=== PATIENT | male | born 1970 | race African-American/Black ===

== ENCOUNTER 2017-04-14 15:47 | Emergency (ER) | payer SELFPAY ==
[~2017-04-14] VITALS: Ht 157.5 cm; Wt 67.5 kg
[~2017-04-14 15:47] MED LIST: BACTRIM DS 8001 TAB PO; CANA300T PO; CEPHALEXIN250 M1 PO; CEPHALEXIN500 M1 PO; CLEOCIN HC150 MG/CAP PO; DOXYCYCLINE 10100 MG PO; FLEXERIL 1010 MG/TAB PO; FLOVENT 110MCG7.9 GM IH; GLIPIZIDE10 MG PO; GLUCOPHAGE500 MG/TAB PO; GLUCOTROL10 MG PO; HIGH BP MED; LEVAQUIN 5500 MG/TAB PO; LEVAQUIN 750MG750 M1 PO; LEVEMIR FLEXPEN SC; NAPROSYN500 MG PO; NO HOME MEDICATIONS; NORCO 325 MG-51 TAB PO; NORCO 325 MG-7.1 TAB PO; PEN-VEE K500 MG PO; PERCOCET 325 MG1 TA2 PO; PREDNISONE20 MG PO; PRINIVIL20 MG PO; PROVENTIL0.09 MG/A1 IH; SEPTRA DS 8001 TAB PO; VENTOLIN0.09 MG IH; VICODIN 5/5001 UDTAB PO; ZITHROMAX 250M250 MG PO; ZITHROMAX Z PA250 MG PO
[2017-04-14 15:53] VITALS: TEMP 99.3
[2017-04-14 17:01] LABS: BASO % 0.6 % (0.0-2.0); EOS % 0.8 % (0-4.0); GRAN # 3.1 (1.4-6.5); GRAN % 59.6 % (42.2-75.2); HEMATOCRIT 42.2 % (42.0-52.0); HEMOGLOBIN 13.8 g/dl (13.5-18.0); LYMPH # 1.5 (1.2-3.4); LYMPH % 28.4 % (20.0-51.0); MEAN CELL VOLUME 89 fl (80.0-100.0); MEAN CORPUSCULAR HEMOGLOBIN 29 pg (27.0-31.0); MEAN CORPUSCULAR HGB CONC 33 g/dl (33.0-37.0); MEAN PLATELET VOLUME 9.7 fl (7.4-10.4); MONO # 0.5 (0.1-0.6); MONO % 10.4 % (1.7-9.3); PLATELET COUNT 243 K/mm3 (130-400); RED BLOOD COUNT 4.76 M/mm3 (4.20-5.60); REDCELL DISTRIBUTION WIDTH-CV 13.1 % (11.5-14.5)
[2017-04-14 17:06] LABS: ALBUMIN 4.2 gm/dL (3.5-5.0); BILIRUBIN,TOTAL 0.8 mg/dL (0.0-1.0); C-REACTIVE PROTEIN 4.3 mg/dL (0.0-0.9); CALCIUM 9.5 mg/dL (8.4-10.2); CREATININE, serum 1.03 mg/dL (0.66-1.25); POTASSIUM 3.4 mmol/L (3.4-5.0); TOTAL PROTEIN 7.9 gm/dL (6.4-8.2)
[2017-04-14] MEDS ORDERED: MUCINEX FAST-M180 M2 (17:07)
[2017-04-14 17:43] LABS: INFLUENZA A NEGATIVE; INFLUENZA B NEGATIVE
[2017-04-14] MEDS ORDERED: ZITHROMAX 250M250 MG PO (18:14)
[2017-04-14] MEDS ORDERED: PREDNISONE20 MG PO (18:14)
[2017-04-14] MEDS ORDERED: NORCO 325 MG-51 TAB PO (18:14)
[2017-04-14 18:31] VITALS: BP 130/83; PULSE 95
== END 2017-04-14 19:12 | disposition home or self-care (01) ==
LOC: COL.ER 15:47
PROVIDERS: Emergency Medicine
DX: J45.909 Unspecified asthma, uncomplicated (principal); E11.9 Type 2 diabetes mellitus without complications; Z79.84 Long term (current) use of oral hypoglycemic drugs
CPT/HCPCS: J2405; J7030; J7512

== ENCOUNTER 2017-05-07 16:05 | Emergency (ER) | payer SELFPAY ==
[~2017-05-07] VITALS: Ht 157.5 cm; Wt 71.4 kg
[~2017-05-07 16:05] MED LIST changes: +MUCINEX FAST-M180 M2
[2017-05-07 16:09] VITALS: BP 108/57; TEMP 98.1
[2017-05-07 17:08] LABS: INFLUENZA A NEGATIVE; INFLUENZA B NEGATIVE
[2017-05-07] MEDS ORDERED: ZITHROMAX 250M250 MG PO (18:43)
[2017-05-07] MEDS ORDERED: PREDNISONE20 MG PO (18:43)
[2017-05-07 19:26] VITALS: PULSE 96
== END 2017-05-07 19:30 | disposition home or self-care (01) ==
LOC: COL.ER 16:05
PROVIDERS: Emergency Medicine
DX: J44.9 Chronic obstructive pulmonary disease, unspecified (principal); E11.9 Type 2 diabetes mellitus without complications; I10 Essential (primary) hypertension; F17.210 Nicotine dependence, cigarettes, uncomplicated
CPT/HCPCS: J7512

== ENCOUNTER 2017-06-29 12:08 | Emergency (ER) | payer SELFPAY ==
[~2017-06-29] VITALS: Ht 157.5 cm; Wt 66.8 kg
[~2017-06-29 12:08] MED LIST changes: -LEVEMIR100 U/ML SQ; -PROAIR HFA0.09 MG/AC IH
[2017-06-29 12:13] VITALS: TEMP 98.9
[2017-06-29] MEDS ORDERED: PROVENTIL0.09 MG/A1 IH (12:16)
[2017-06-29] MEDS ORDERED: LEVEMIR100 U/ML SQ (12:17)
[2017-06-29] MEDS ORDERED: PROAIR HFA0.09 MG/AC IH (12:50)
[2017-06-29] MEDS ORDERED: PREDNISONE20 MG PO (12:50)
[2017-06-29] MEDS ORDERED: ZITHROMAX Z PA250 MG PO (12:50)
[2017-06-29 13:33] VITALS: BP 133/86; PULSE 80
== END 2017-06-29 13:33 | disposition home or self-care (01) ==
LOC: COL.ER 12:08
DX: J45.909 Unspecified asthma, uncomplicated (principal); E11.9 Type 2 diabetes mellitus without complications; Z86.14 Personal history of Methicillin resistant Staphylococcus aureus infection; Z98.890 Other specified postprocedural states; Z79.4 Long term (current) use of insulin
CPT/HCPCS: J7512

== ENCOUNTER → 2017-06-29 | Outpatient (CLI) | payer SELFPAY ==
[~2017-06-29] MED LIST changes: +LEVEMIR100 U/ML SQ; +PROAIR HFA0.09 MG/AC IH
[2017-06-29 14:25] LABS: HEMATOCRIT 42.9 % (42.0-52.0); HEMOGLOBIN 13.7 g/dl (13.5-18.0)
[2017-06-29 14:55] LABS: ALBUMIN 4.3 gm/dL (3.5-5.0); BILIRUBIN,TOTAL 0.5 mg/dL (0.0-1.0); CALCIUM 9.3 mg/dL (8.4-10.2); CHOLESTEROL RISK RATIO 4.8; CREATININE, serum 1.45 mg/dL (0.66-1.25); POTASSIUM 3.9 mmol/L (3.4-5.0); TOTAL PROTEIN 7.8 gm/dL (6.4-8.2)
[2017-06-29 15:25] LABS: THYROID STIMULATING HORMONE 1.76 uIU/mL (0.465-4.680)
== END ==
LOC: COL.LAB 13:57
DX: E11.9 Type 2 diabetes mellitus without complications (principal)

== ENCOUNTER 2017-08-13 11:12 | Emergency (ER) | payer SELFPAY ==
[~2017-08-13] VITALS: Ht 157.5 cm; Wt 71.4 kg
[~2017-08-13 11:12] MED LIST changes: +LEVEMIR100 U/ML SQ; +PROAIR HFA0.09 MG/AC IH
[2017-08-13 11:15] VITALS: BP 121/71; TEMP 98.6
[2017-08-13] MEDS ORDERED: ALBUTEROL0.83 MG/ML IH (12:06)
[2017-08-13] MEDS ORDERED: PROAIR HFA0.09 MG/AC IH (12:06)
[2017-08-13] MEDS ORDERED: PREDNISONE20 MG PO (12:06)
[2017-08-13 12:14] VITALS: PULSE 80
== END 2017-08-13 12:15 | disposition home or self-care (01) ==
LOC: COL.ER 11:12
DX: J45.909 Unspecified asthma, uncomplicated (principal); J06.9 Acute upper respiratory infection, unspecified; E11.9 Type 2 diabetes mellitus without complications; Z98.890 Other specified postprocedural states; Z79.4 Long term (current) use of insulin

== ENCOUNTER → 2017-10-26 | Outpatient (CLI) | payer SELFPAY ==
[~2017-10-26] MED LIST changes: +ALBUTEROL0.83 MG/ML IH
== END ==
LOC: SUN.DIA 09:47
DX: E11.9 Type 2 diabetes mellitus without complications (principal); Z79.4 Long term (current) use of insulin; E78.5 Hyperlipidemia, unspecified; I10 Essential (primary) hypertension; Z68.27 Body mass index [BMI] 27.0-27.9, adult; Z71.3 Dietary counseling and surveillance; Z87.891 Personal history of nicotine dependence
CPT/HCPCS: G0108

== ENCOUNTER 2017-12-28 11:30 | Emergency (ER) | payer SELFPAY ==
[~2017-12-28] VITALS: Ht 157.5 cm; Wt 71.4 kg
[2017-12-28 11:37] VITALS: TEMP 101.4
[2017-12-28] MEDS ORDERED: PRINIVIL10 MG PO (11:41)
[2017-12-28 11:59] LABS: BASO % 0.6 % (0.0-2.0); EOS # 0.3 (0.0-0.7); EOS % 4.7 % (0-4.0); GRAN # 3.7 (1.4-6.5); GRAN % 68.4 % (42.2-75.2); HEMATOCRIT 39.2 % (42.0-52.0); LYMPH # 0.9 (1.2-3.4); MEAN CELL VOLUME 90 fl (80.0-100.0); MEAN CORPUSCULAR HEMOGLOBIN 30 pg (27.0-31.0); MEAN CORPUSCULAR HGB CONC 33 g/dl (33.0-37.0); MEAN PLATELET VOLUME 9.5 fl (7.4-10.4); MONO # 0.5 (0.1-0.6); MONO % 9.1 % (1.7-9.3); PLATELET COUNT 217 K/mm3 (130-400); RED BLOOD COUNT 4.35 M/mm3 (4.20-5.60); REDCELL DISTRIBUTION WIDTH-CV 12.6 % (11.5-14.5)
[2017-12-28 12:15] LABS: ALANINE AMINOTRANSFERASE 33 U/L (21-72); ALBUMIN 3.8 gm/dL (3.5-5.0); ALKALINE PHOSPHATASE 81 U/L (50-136); ANION GAP 12 mmol/L (7-16); AST,SGOT 25 U/L (15-37); BILIRUBIN,TOTAL 0.3 mg/dL (0.0-1.0); BLOOD UREA NITROGEN 15 mg/dL (9-20); CALCIUM 8.4 mg/dL (8.4-10.2); CARBON DIOXIDE 24 mmol/L (22-30); CHLORIDE 101 mmol/L (98-107); CREATININE, serum 1.13 mg/dL (0.66-1.25); GLUCOSE 135 mg/dL (74-106); POTASSIUM 3.7 mmol/L (3.4-5.0); SODIUM 136 mmol/L (137-145)
[2017-12-28 12:26] LABS: TROPONIN-I < 0.012 ng/mL (0.000-0.034)
[2017-12-28] MEDS ORDERED: ZITHROMAX TRI-500 MG PO (13:41)
[2017-12-28] MEDS ORDERED: PREDNISONE20 MG PO (13:41)
[2017-12-28 15:01] VITALS: BP 152/94; PULSE 101
== END 2017-12-28 15:01 | disposition home or self-care (01) ==
LOC: COL.ER 11:30
PROVIDERS: Nurse Practitioner
DX: J45.901 Unspecified asthma with (acute) exacerbation (principal); I10 Essential (primary) hypertension; E11.9 Type 2 diabetes mellitus without complications; Z98.890 Other specified postprocedural states; Z79.4 Long term (current) use of insulin; Z87.891 Personal history of nicotine dependence
CPT/HCPCS: J0696; J2930; J7030

== ENCOUNTER 2018-01-02 10:02 | Observation (INO) | payer SELFPAY ==
[~2018-01-02] VITALS: Ht 157.5 cm; Wt 66.3 kg
[~2018-01-02 10:02] MED LIST changes: +PRINIVIL10 MG PO; +ZITHROMAX TRI-500 MG PO
[2018-01-02 10:42] LABS: HEMATOCRIT 43.2 % (42.0-52.0); HEMOGLOBIN 14.8 g/dl (13.5-18.0); MEAN CELL VOLUME 86 fl (80.0-100.0); MEAN CORPUSCULAR HEMOGLOBIN 30 pg (27.0-31.0); MEAN CORPUSCULAR HGB CONC 34 g/dl (33.0-37.0); MEAN PLATELET VOLUME 9.8 fl (7.4-10.4); PLATELET COUNT 210 K/mm3 (130-400); RED BLOOD COUNT 5.01 M/mm3 (4.20-5.60); REDCELL DISTRIBUTION WIDTH-CV 12.4 % (11.5-14.5)
[2018-01-02 10:47] LABS: ALBUMIN 3.7 gm/dL (3.5-5.0); BILIRUBIN,TOTAL 0.4 mg/dL (0.0-1.0); CALCIUM 8.8 mg/dL (8.4-10.2); CREATININE, serum 0.97 mg/dL (0.66-1.25); POTASSIUM 3.4 mmol/L (3.4-5.0); TOTAL PROTEIN 7.4 gm/dL (6.4-8.2)
[2018-01-02 11:03] LABS: BAND 7 % (0-10); LYMPHOCYTE 15 % (20.0-51.0); NEUTROPHILS 74 % (42.0-75.2); PLATELET ESTIMATE NORMAL (NORMAL)
[2018-01-02 13:39] VITALS: BP 138/70; PULSE 103; TEMP 98
[2018-01-02 15:58] VITALS: BP 132/68; PULSE 91; TEMP 98.4
[2018-01-02] MEDS ORDERED: PRAVACHOL 20MG20 MG PO (16:13)
[2018-01-02 19:32] VITALS: BP 134/70; PULSE 87; TEMP 98.4
[2018-01-03] VITALS (7 sets, daily range): BP systolic 111–163; BP diastolic 73–87; PULSE 77–113; TEMP 97.9–99.6
[2018-01-03 06:37] LABS: MEAN CELL VOLUME 86 fl (80.0-100.0); MEAN CORPUSCULAR HEMOGLOBIN 29 pg (27.0-31.0); MEAN CORPUSCULAR HGB CONC 34 g/dl (33.0-37.0); MEAN PLATELET VOLUME 9.4 fl (7.4-10.4); PLATELET COUNT 214 K/mm3 (130-400); RED BLOOD COUNT 4.29 M/mm3 (4.20-5.60); REDCELL DISTRIBUTION WIDTH-CV 12.6 % (11.5-14.5)
[2018-01-03 06:45] LABS: CALCIUM 8.4 mg/dL (8.4-10.2); CREATININE, serum 0.9 mg/dL (0.66-1.25); HEMOGLOBIN 12.5 g/dl (13.5-18.0); POTASSIUM 3.5 mmol/L (3.4-5.0)
[2018-01-03 07:06] LABS: BAND 7 % (0-10); LYMPHOCYTE 35 % (20.0-51.0); NEUTROPHILS 50 % (42.0-75.2); PLATELET ESTIMATE NORMAL (NORMAL)
[2018-01-04 04:24] VITALS: BP 175/91; PULSE 87; TEMP 98.8
[2018-01-04 06:55] VITALS: BP 141/77; PULSE 105; TEMP 98.1
[2018-01-04 06:58] LABS: HEMATOCRIT 37.2 % (42.0-52.0); HEMOGLOBIN 12.3 g/dl (13.5-18.0); MEAN CELL VOLUME 89 fl (80.0-100.0); MEAN CORPUSCULAR HEMOGLOBIN 29 pg (27.0-31.0); MEAN CORPUSCULAR HGB CONC 33 g/dl (33.0-37.0); MEAN PLATELET VOLUME 9.5 fl (7.4-10.4); PLATELET COUNT 246 K/mm3 (130-400); REDCELL DISTRIBUTION WIDTH-CV 12.7 % (11.5-14.5)
[2018-01-04 07:07] LABS: CALCIUM 7.9 mg/dL (8.4-10.2); CREATININE, serum 0.85 mg/dL (0.66-1.25)
[2018-01-04 07:18] LABS: POTASSIUM 2.8 mmol/L (3.4-5.0)
[2018-01-04 07:43] LABS: EOSINOPHIL 1 % (0-4); LYMPHOCYTE 30 % (20.0-51.0); NEUTROPHILS 61 % (42.0-75.2)
[2018-01-04 07:44] LABS: PLATELET ESTIMATE NORMAL (NORMAL)
[2018-01-04] MEDS ORDERED: LEVAQUIN 750MG750 M1 PO (09:15)
[2018-01-04] MEDS ORDERED: ROBITUSSIN A-C S1 M1 PO (09:19)
[2018-01-04 10:55] VITALS: BP 154/85; PULSE 80; TEMP 98.9
== END 2018-01-04 15:14 | disposition home or self-care (01) ==
LOC: COL.ER 10:02 → MEDICAL 12:09
PROVIDERS: Family Medicine; Hospitalist; Nurse Practitioner Family
DX: J18.8 Other pneumonia, unspecified organism (principal); I10 Essential (primary) hypertension; E87.6 Hypokalemia; E11.9 Type 2 diabetes mellitus without complications; Z79.4 Long term (current) use of insulin; J45.909 Unspecified asthma, uncomplicated
CPT/HCPCS: G0378; G0379; J0696; J1650; J1815; J1956; J2930; J7030

== ENCOUNTER 2018-03-15 12:48 | Emergency (ER) | payer SELFPAY ==
[~2018-03-15] VITALS: Ht 157.5 cm; Wt 74.6 kg
[~2018-03-15 12:48] MED LIST changes: +PRAVACHOL 20MG20 MG PO; +ROBITUSSIN A-C S1 M1 PO
[2018-03-15 12:55] VITALS: TEMP 98.4
[2018-03-15 14:06] LABS: COLLECTION METHOD CLEAN CATCH
[2018-03-15 14:21] LABS: MUCOUS Present /lpf; PH 5 (5-8); SQUAMOUS EPITHELIAL 0-2 /hpf; URINE APPEARANCE Cloudy; URINE BACTERIA Rare /hpf; URINE BILIRUBIN Negative (NEGATIVE); URINE BLOOD Negative (NEGATIVE); URINE COLOR Amber; URINE GLUCOSE 1+ (NEGATIVE); URINE KETONE Trace (NEGATIVE); URINE LEUKOCYTE ESTERASE Negative (NEGATIVE); URINE NITRATE Negative (NEGATIVE); URINE PROTEIN(semi-quant) 3+ (NEGATIVE); URINE UROBILINOGEN >=4.0 mg/dL (NEGATIVE)
[2018-03-15 15:54] LABS: BASO % 0.3 % (0.0-2.0); EOS # 0.4 (0.0-0.7); EOS % 5.4 % (0-4.0); GRAN # 3.8 (1.4-6.5); GRAN % 53.9 % (42.2-75.2); HEMOGLOBIN 11.2 g/dl (13.5-18.0); LYMPH # 2.2 (1.2-3.4); LYMPH % 31.3 % (20.0-51.0); MEAN CELL VOLUME 89 fl (80.0-100.0); MEAN CORPUSCULAR HEMOGLOBIN 30 pg (27.0-31.0); MEAN CORPUSCULAR HGB CONC 34 g/dl (33.0-37.0); MEAN PLATELET VOLUME 10.1 fl (7.4-10.4); MONO # 0.6 (0.1-0.6); MONO % 8.7 % (1.7-9.3); PLATELET COUNT 261 K/mm3 (130-400); RED BLOOD COUNT 3.71 M/mm3 (4.20-5.60); REDCELL DISTRIBUTION WIDTH-CV 12.9 % (11.5-14.5)
[2018-03-15 15:58] LABS: HEMATOCRIT 33.1 % (42.0-52.0)
[2018-03-15 16:08] LABS: ALBUMIN 3.8 gm/dL (3.5-5.0); BILIRUBIN,TOTAL 0.4 mg/dL (0.0-1.0); CREATININE, serum 1.17 mg/dL (0.66-1.25); POTASSIUM 3.9 mmol/L (3.4-5.0); TOTAL PROTEIN 7.6 gm/dL (6.4-8.2)
[2018-03-15] MEDS ORDERED: AMOXICILLIN 8751 TAB PO (16:29)
[2018-03-15 17:15] VITALS: BP 140/2; PULSE 70
== END 2018-03-15 17:16 | disposition home or self-care (01) ==
LOC: COL.ER 12:48
PROVIDERS: Emergency Medicine; Family Medicine
DX: J18.1 Lobar pneumonia, unspecified organism (principal); I10 Essential (primary) hypertension; E11.9 Type 2 diabetes mellitus without complications; E86.0 Dehydration; Z79.84 Long term (current) use of oral hypoglycemic drugs
CPT/HCPCS: J0696; J7030; Q9967

== ENCOUNTER → 2018-05-06 | Outpatient (CLI) | payer SELFPAY ==
[~2018-05-06] MED LIST changes: +AMOXICILLIN 8751 TAB PO
== END ==
LOC: COL.RAD 12:23
DX: J18.9 Pneumonia, unspecified organism (principal)

== ENCOUNTER → 2018-05-25 | Outpatient (CLI) | payer SELFPAY ==
[2018-05-25 11:53] LABS: HEMATOCRIT 38.3 % (42.0-52.0); HEMOGLOBIN 12.8 g/dl (13.5-18.0)
[2018-05-25 12:09] LABS: ALBUMIN 3.7 gm/dL (3.5-5.0); BILIRUBIN,TOTAL 0.7 mg/dL (0.0-1.0); CALCIUM 9.1 mg/dL (8.4-10.2); CHOLESTEROL RISK RATIO 5.3; CREATININE, serum 0.95 mg/dL (0.66-1.25); POTASSIUM 4.2 mmol/L (3.4-5.0); TOTAL PROTEIN 7.3 gm/dL (6.4-8.2)
== END ==
LOC: COL.LAB 11:12
PROVIDERS: Internal Medicine
DX: E11.9 Type 2 diabetes mellitus without complications (principal); J45.909 Unspecified asthma, uncomplicated

== ENCOUNTER → 2018-08-09 | Outpatient (CLI) | payer SELFPAY | LOC: SUN.DIA | DX: E11.9 Type 2 diabetes mellitus without complications (principal); Z79.4 Long term (current) use of insulin; E78.5 Hyperlipidemia, unspecified; I10 Essential (primary) hypertension | CPT/HCPCS: G0108 ==

== ENCOUNTER → 2018-08-09 | Outpatient (CLI) | payer SELFPAY ==
[2018-08-09 11:24] LABS: ALBUMIN 3.5 gm/dL (3.5-5.0); TOTAL PROTEIN 7.1 gm/dL (6.4-8.2)
[2018-08-09 11:42] LABS: BILIRUBIN UNCONJUGATED 0.2 mg/dL (0.0-1.1); BILIRUBIN,DIRECT 0.2 mg/dL (0.0-0.4); BILIRUBIN,TOTAL 0.4 mg/dL (0.0-1.0)
[2018-08-09 22:42] LABS: HEPATITIS B SURFACE ANTIBODY 175.4 (()); HEPATITIS B SURFACE ANTIGEN Negative (Negative)
[2018-08-10 05:34] LABS: HEPATITIS A ANTIBODY-IGM Negative (Negative); HEPATITIS C VIRUS ANTIBODY Reactive (Negative)
== END ==
LOC: COL.LAB 10:33
PROVIDERS: Internal Medicine
DX: R94.5 Abnormal results of liver function studies (principal)

== ENCOUNTER → 2018-08-11 | Outpatient (CLI) | payer SELFPAY | LOC: COL.RAD 10:21 | DX: K76.9 Liver disease, unspecified (principal); N28.89 Other specified disorders of kidney and ureter ==

== ENCOUNTER → 2018-08-27 | Outpatient (CLI) | payer SELFPAY ==
[2018-08-27 14:16] LABS: CREATININE, serum 0.77 (0.66-1.25)
== END ==
LOC: COL.RAD 12:43 → COL.LAB 12:43 → COL.RAD 13:00
PROVIDERS: Internal Medicine
DX: E11.9 Type 2 diabetes mellitus without complications (principal); N28.89 Other specified disorders of kidney and ureter; D18.03 Hemangioma of intra-abdominal structures; R76.8 Other specified abnormal immunological findings in serum
CPT/HCPCS: Q9967

== ENCOUNTER → 2018-11-08 | Outpatient (CLI) | payer SELFPAY | LOC: DIA.ED 13:14 | DX: E11.9 Type 2 diabetes mellitus without complications (principal); E78.5 Hyperlipidemia, unspecified; I10 Essential (primary) hypertension; Z79.4 Long term (current) use of insulin | CPT/HCPCS: G0108 ==

== ENCOUNTER 2018-11-19 11:17 | Emergency (ER) | payer SELFPAY ==
[~2018-11-19] VITALS: Ht 160 cm; Wt 63.6 kg
[2018-11-19 11:22] VITALS: BP 117/70; TEMP 98.4
[2018-11-19] MEDS ORDERED: PREDNISONE20 MG PO ×2 (11:34→13:34)
[2018-11-19] MEDS ORDERED: VENTOLIN0.09 MG IH (11:34)
[2018-11-19 13:00] LABS: BASO % 0.4 % (0.0-2.0); EOS # 0.4 (0.0-0.7); EOS % 5.7 % (0-4.0); GRAN # 3.4 (1.4-6.5); GRAN % 45.4 % (42.2-75.2); HEMATOCRIT 42.2 % (42.0-52.0); HEMOGLOBIN 14.9 g/dl (13.5-18.0); LYMPH # 2.9 (1.2-3.4); LYMPH % 38.5 % (20.0-51.0); MEAN CELL VOLUME 88 fl (80.0-100.0); MEAN CORPUSCULAR HEMOGLOBIN 31 pg (27.0-31.0); MEAN CORPUSCULAR HGB CONC 35 g/dl (33.0-37.0); MEAN PLATELET VOLUME 10.2 fl (7.4-10.4); MONO # 0.7 (0.1-0.6); MONO % 9.7 % (1.7-9.3); PLATELET COUNT 327 K/mm3 (130-400); RED BLOOD COUNT 4.79 M/mm3 (4.20-5.60); REDCELL DISTRIBUTION WIDTH-CV 11.9 % (11.5-14.5)
[2018-11-19 13:09] LABS: ALBUMIN 3.4 gm/dL (3.5-5.0); BILIRUBIN,TOTAL 0.8 mg/dL (0.0-1.0); CALCIUM 9.1 mg/dL (8.4-10.2); TOTAL PROTEIN 7.1 gm/dL (6.4-8.2)
[2018-11-19 13:40] VITALS: PULSE 100
== END 2018-11-19 13:41 | disposition home or self-care (01) ==
LOC: COL.ER 11:17
PROVIDERS: Emergency Medicine
DX: J45.901 Unspecified asthma with (acute) exacerbation (principal); E11.9 Type 2 diabetes mellitus without complications; Z87.891 Personal history of nicotine dependence; Z79.4 Long term (current) use of insulin
CPT/HCPCS: J2930; J3475; J7030

== ENCOUNTER 2018-12-27 15:01 | Emergency (ER) | payer SELFPAY ==
[~2018-12-27] VITALS: Ht 157.5 cm; Wt 59.1 kg
[2018-12-27] MEDS ORDERED: FLEXERIL 1010 MG/TAB PO (17:26)
[2018-12-27] MEDS ORDERED: NORCO 325 MG-51 TAB PO (17:33)
[2018-12-27 17:46] VITALS: BP 159/89; PULSE 80; TEMP 98.1
== END 2018-12-27 17:55 | disposition home or self-care (01) ==
LOC: COL.ER 15:01
DX: S43.51XA Sprain of right acromioclavicular joint, initial encounter (principal); E10.9 Type 1 diabetes mellitus without complications; J45.909 Unspecified asthma, uncomplicated; F17.210 Nicotine dependence, cigarettes, uncomplicated; Z98.890 Other specified postprocedural states; W18.30XA Fall on same level, unspecified, initial encounter; Y92.009 Unspecified place in unspecified non-institutional (private) residence as the place of occurrence of the external cause
CPT/HCPCS: J1885

== ENCOUNTER 2019-02-16 14:33 | Emergency (ER) | payer SELFPAY ==
[~2019-02-16] VITALS: Ht 165.1 cm; Wt 63.6 kg
[2019-02-16 14:42] VITALS: BP 136/78
[2019-02-16] MEDS ORDERED: AFREZZA12 UNIT SQ (15:34)
[2019-02-16] MEDS ORDERED: PREDNISONE20 MG PO (15:34)
[2019-02-16] MEDS ORDERED: ZITHROMAX Z PA250 MG PO (15:34)
[2019-02-16 15:42] VITALS: PULSE 76; TEMP 98.6
== END 2019-02-16 15:40 | disposition home or self-care (01) ==
LOC: COL.ER 14:33
DX: J45.901 Unspecified asthma with (acute) exacerbation (principal); E11.65 Type 2 diabetes mellitus with hyperglycemia; F17.210 Nicotine dependence, cigarettes, uncomplicated; Z79.84 Long term (current) use of oral hypoglycemic drugs
CPT/HCPCS: J1815; J7512

== ENCOUNTER → 2019-05-16 | Outpatient (CLI) | payer SELFPAY ==
[~2019-05-16] MED LIST changes: +AFREZZA12 UNIT SQ
[2019-05-16 09:20] LABS: HEMOGLOBIN 13.6 g/dl (13.5-18.0)
[2019-05-16 09:47] LABS: ALBUMIN 2.9 gm/dL (3.5-5.0); BILIRUBIN,TOTAL 0.6 mg/dL (0.0-1.0); CHOLESTEROL RISK RATIO 4.9; CREATININE, serum 1.02 (0.66-1.25); TOTAL PROTEIN 6.4 gm/dL (6.4-8.2)
[2019-05-16 09:55] LABS: POTASSIUM 2.8 mmol/L (3.4-5.0)
== END ==
LOC: COL.LAB 08:25
PROVIDERS: Physician Assistant
DX: E11.9 Type 2 diabetes mellitus without complications (principal); I10 Essential (primary) hypertension

== ENCOUNTER → 2019-06-30 | Outpatient (CLI) | payer SELFPAY ==
[2019-06-30 08:32] LABS: ALBUMIN 2.9 gm/dL (3.5-5.0); BASO % 0.4 % (0.0-2.0); BILIRUBIN,TOTAL 0.3 mg/dL (0.0-1.0); CALCIUM 7.8 mg/dL (8.4-10.2); CREATININE, serum 1.16 (0.66-1.25); EOS # 0.1 (0.0-0.7); EOS % 1.3 % (0-4.0); GRAN # 6.4 (1.4-6.5); GRAN % 69.6 % (42.2-75.2); HEMATOCRIT 38.5 % (42.0-52.0); HEMOGLOBIN 12.7 g/dl (13.5-18.0); LYMPH # 2.2 (1.2-3.4); LYMPH % 24.3 % (20.0-51.0); MEAN CELL VOLUME 89 fl (80.0-100.0); MEAN CORPUSCULAR HEMOGLOBIN 29 pg (27.0-31.0); MEAN CORPUSCULAR HGB CONC 33 g/dl (33.0-37.0); MONO # 0.4 (0.1-0.6); MONO % 4.2 % (1.7-9.3); PLATELET COUNT 318 K/mm3 (130-400); POTASSIUM 3.3 mmol/L (3.4-5.0); RED BLOOD COUNT 4.33 M/mm3 (4.20-5.60); REDCELL DISTRIBUTION WIDTH-CV 12.9 % (11.5-14.5); TOTAL PROTEIN 6.7 gm/dL (6.4-8.2)
[2019-06-30 10:30] LABS: PROTHROMBIN TIME 11.2 SECONDS (9.7-12.8)
[2019-06-30 16:23] LABS: HEPATITIS B SURFACE ANTIGEN Negative (Negative)
[2019-07-02 15:18] LABS: LIVER FIBROSIS APOLIPOPROTEIN 174 mg/dL (>=120)
[2019-07-04 08:11] LABS: LIVER FIBROSIS ALPHA 2 MACRO 384 mg/dL (())
== END ==
LOC: COL.LAB 07:27
PROVIDERS: Internal Medicine Gastroenterology
DX: B19.20 Unspecified viral hepatitis C without hepatic coma (principal)

== ENCOUNTER → 2019-08-23 | Outpatient (CLI) | payer SELFPAY | LOC: COL.RAD 10:26 | DX: N28.89 Other specified disorders of kidney and ureter (principal); R74.8 Abnormal levels of other serum enzymes | CPT/HCPCS: Q9967 ==

== ENCOUNTER 2019-11-06 14:38 | Emergency (ER) | payer SELFPAY ==
[~2019-11-06] VITALS: Ht 157.5 cm; Wt 65.0 kg
[2019-11-06 14:42] VITALS: TEMP 98.3
[2019-11-06] MEDS ORDERED: LANTUS SOLOS100 U/ML SQ (14:49)
[2019-11-06] MEDS ORDERED: NAPROSYN 2250 MG/TAB PO (15:20)
[2019-11-06] MEDS ORDERED: FLEXERIL 1010 MG/TAB PO (15:20)
[2019-11-06 16:52] VITALS: BP 162/111; PULSE 54
== END 2019-11-06 16:54 | disposition home or self-care (01) ==
LOC: COL.ER 14:38
DX: S46.811A Strain of other muscles, fascia and tendons at shoulder and upper arm level, right arm, initial encounter (principal); E11.9 Type 2 diabetes mellitus without complications; J45.909 Unspecified asthma, uncomplicated; Z79.4 Long term (current) use of insulin; W08.XXXA Fall from other furniture, initial encounter; Y92.009 Unspecified place in unspecified non-institutional (private) residence as the place of occurrence of the external cause
CPT/HCPCS: J1885

== ENCOUNTER 2020-05-08 23:22 | Emergency (ER) | payer SELFPAY ==
[~2020-05-08] VITALS: Ht 157.5 cm; Wt 66.8 kg
[~2020-05-08 23:22] MED LIST changes: +LANTUS SOLOS100 U/ML SQ; +NAPROSYN 2250 MG/TAB PO
[2020-05-08 23:56] VITALS: TEMP 97.2
[2020-05-09 01:36] LABS: BASO % 0.1 % (0.0-2.0); EOS % 0.1 % (0-4.0); GRAN # 13.1 (1.4-6.5); GRAN % 81.2 % (42.2-75.2); HEMATOCRIT 34.7 % (42.0-52.0); HEMOGLOBIN 11.3 g/dl (13.5-18.0); LYMPH # 1.9 (1.2-3.4); LYMPH % 11.7 % (20.0-51.0); MEAN CELL VOLUME 95 fl (80.0-100.0); MEAN CORPUSCULAR HEMOGLOBIN 31 pg (27.0-31.0); MEAN CORPUSCULAR HGB CONC 33 g/dl (33.0-37.0); MONO % 5.9 % (1.7-9.3); PLATELET COUNT 327 K/mm3 (130-400); RED BLOOD COUNT 3.66 M/mm3 (4.20-5.60); REDCELL DISTRIBUTION WIDTH-CV 13.4 % (11.5-14.5)
[2020-05-09 01:46] LABS: INR 0.9 (0.8-3.0); PROTHROMBIN TIME 10.1 SECONDS (9.7-12.8)
[2020-05-09 01:48] LABS: PARTIAL THROMBOPLASTIN TIME 27.4 SECONDS (26.0-37.0)
[2020-05-09 01:49] LABS: ALBUMIN 3.6 gm/dL (3.5-5.0); BILIRUBIN,TOTAL 0.5 mg/dL (0.0-1.0); CALCIUM 8.2 mg/dL (8.4-10.2); CREATININE, serum 4.47 (0.66-1.25); POTASSIUM 3.9 mmol/L (3.4-5.0); TOTAL PROTEIN 7.5 gm/dL (6.4-8.2)
[2020-05-09 02:15] LABS: TROPONIN-I 0.085 ng/mL (0.000-0.035)
[2020-05-09 04:38] LABS: ARTERIAL BLD GAS O2 SATURATION 97.3 % (92-100); ARTERIAL BLD GAS TCO2 CT 22.3; ARTERIAL BLOOD GAS BASE EXCESS -3.5 (-2-2); ARTERIAL BLOOD GAS HCO3 21.2 meq/L (22-26); ARTERIAL BLOOD GAS PCO2 36.8 mmHg (35-45); ARTERIAL BLOOD GAS PO2 96.9 mmHg (80-100); ARTERIAL BLOOD GAS pH 7.38 (7.35-7.45)
[2020-05-09 04:52] LABS: CREATININE, serum 4.5 (0.66-1.25); POTASSIUM 3.6 mmol/L (3.4-5.0)
[2020-05-09 05:09] LABS: TROPONIN-I 0.083 ng/mL (0.000-0.035)
[2020-05-09] MEDS ORDERED: PRINIVIL5 MG PO (07:16)
[2020-05-09 07:52] VITALS: BP 139/91; PULSE 127
== END 2020-05-09 08:00 | disposition short-term general hospital (02) ==
LOC: COL.ER 23:22
PROVIDERS: Emergency Medicine
DX: J45.901 Unspecified asthma with (acute) exacerbation (principal); N17.9 Acute kidney failure, unspecified; E11.65 Type 2 diabetes mellitus with hyperglycemia
CPT/HCPCS: J0456; J0696; J1815; J1940; J2930; J7050; J7060

== ENCOUNTER 2020-06-21 15:49 | Emergency (ER) | payer SELFPAY ==
[~2020-06-21] VITALS: Ht 157.5 cm; Wt 69.5 kg
[~2020-06-21 15:49] MED LIST changes: +PRINIVIL5 MG PO
[2020-06-21 15:58] VITALS: TEMP 98.6
[2020-06-21] MEDS ORDERED: ASPIRIN 81M81 MG/TA2 PO (16:18)
[2020-06-21] MEDS ORDERED: NORVASC 10MG10 MG PO (16:18)
[2020-06-21] MEDS ORDERED: APRESOLINE50 MG PO (16:19)
[2020-06-21] MEDS ORDERED: LASIX 40MG TABL40 MG PO ×2 (16:19)
[2020-06-21] MEDS ORDERED: COREG 6.256.25 MG/TA PO (16:19)
[2020-06-21] MEDS ORDERED: ISORDIL 10MG10 MG PO (16:20)
[2020-06-21] MEDS ORDERED: NOVOLOG FLEX100 U/ML SQ (16:20)
[2020-06-21 16:51] LABS: BASO % 0.6 % (0.0-2.0); EOS # 0.5 (0.0-0.7); EOS % 7.2 % (0-4.0); GRAN # 4.3 (1.4-6.5); GRAN % 58.8 % (42.2-75.2); LYMPH # 1.8 (1.2-3.4); LYMPH % 24.2 % (20.0-51.0); MEAN CELL VOLUME 94 fl (80.0-100.0); MEAN CORPUSCULAR HGB CONC 32 g/dl (33.0-37.0); MEAN PLATELET VOLUME 10.3 fl (7.4-10.4); MONO # 0.6 (0.1-0.6); MONO % 8.9 % (1.7-9.3); PLATELET COUNT 206 K/mm3 (130-400); RED BLOOD COUNT 3.09 M/mm3 (4.20-5.60); REDCELL DISTRIBUTION WIDTH-CV 12.8 % (11.5-14.5)
[2020-06-21 16:52] LABS: HEMATOCRIT 29.1 % (42.0-52.0); HEMOGLOBIN 9.4 g/dl (13.5-18.0); MEAN CORPUSCULAR HEMOGLOBIN 30 pg (27.0-31.0)
[2020-06-21 17:01] LABS: ALANINE AMINOTRANSFERASE 137 U/L (4-49); ALBUMIN 3.4 gm/dL (3.5-5.0); ALKALINE PHOSPHATASE 253 U/L (50-136); ANION GAP 8 mmol/L (7-16); AST,SGOT 138 U/L (15-37); BILIRUBIN,TOTAL 0.5 mg/dL (0.0-1.0); BLOOD UREA NITROGEN 50 mg/dL (9-20); CALCIUM 8.3 mg/dL (8.4-10.2); CARBON DIOXIDE 26 mmol/L (22-30); CHLORIDE 105 mmol/L (98-107); CREATININE, serum 4.75 (0.66-1.25); GLUCOSE 129 mg/dL (74-106); POTASSIUM 3.5 mmol/L (3.4-5.0); SODIUM 138 mmol/L (137-145); TOTAL PROTEIN 6.9 gm/dL (6.4-8.2)
[2020-06-21 17:13] LABS: TROPONIN-I < 0.012 ng/mL (0.000-0.035)
[2020-06-21 17:57] VITALS: BP 128/66; PULSE 77
== END 2020-06-21 17:58 | disposition home or self-care (01) ==
LOC: COL.ER 15:49
PROVIDERS: Physician Assistant
DX: I13.0 Hypertensive heart and chronic kidney disease with heart failure and stage 1 through stage 4 chronic kidney disease, or unspecified chronic kidney disease (principal); N18.9 Chronic kidney disease, unspecified; E11.9 Type 2 diabetes mellitus without complications; A08.4 Viral intestinal infection, unspecified; Z87.891 Personal history of nicotine dependence; Z79.4 Long term (current) use of insulin; Z79.82 Long term (current) use of aspirin

== ENCOUNTER 2020-08-30 07:00 | Day surgery (SDC) | payer SELFPAY ==
[~2020-08-30] VITALS: Ht 157.5 cm; Wt 65.4 kg
[~2020-08-30 07:00] MED LIST changes: +APRESOLINE50 MG PO; +ASPIRIN 81M81 MG/TA2 PO; +COREG 6.256.25 MG/TA PO; +ISORDIL 10MG10 MG PO; +LASIX 40MG TABL40 MG PO; +NORVASC 10MG10 MG PO; +NOVOLOG FLEX100 U/ML SQ
[2020-08-30 07:49] VITALS: BP 178/78; PULSE 66; TEMP 97.9
[2020-08-30] MEDS ORDERED: LANTUS SOLOS100 U/ML SQ (08:05)
--- NOTE | 2020-08-30 08:09 | NUR ---
TO RM 8 AT 0712- CALL LIGHT IN REACH NO ONE WITH PATIENT AT THIS TIME.
[2020-08-30 10:27] VITALS: TEMP 98.7
[2020-08-30] MEDS ORDERED: NORCO 325 MG-51 TAB PO (10:41)
[2020-08-30 10:50] VITALS: BP 156/79; PULSE 63
--- NOTE | 2020-08-30 10:50 | NUR ---
TO RM 8 PER CART FROM PACU. DROWSY, BUT ANSWERS QUESTIONS COHERENTLY. INCISIONS CLEAN DRY INTACT. NO DRAINAGE NOTED. DENIES PAIN OR DISCOMFORT.
[2020-08-30 11:05] VITALS: BP 159/78; PULSE 65
--- NOTE | 2020-08-30 11:05 | NUR ---
LITTLE MORE AWAKE AND RECEIVED WATER, CRACKERS/PEANUT BUTTER.
[2020-08-30 11:20] VITALS: BP 167/83; PULSE 66
--- NOTE | 2020-08-30 11:20 | NUR ---
RECEIVED CRANBERRY JUICE.
--- NOTE | 2020-08-30 11:40 | NUR ---
AMBULATED TO BATHROOM. VOIDED AND AMBULATED BACK TO HIS BED. PATIENT HAS NO ACTIVE OUTER BLEEDING. HEMATOMA RIGHT SIDE 2ND INCISION DOWN.
--- NOTE | 2020-08-30 12:05 | NUR ---
NO NEW CHANGES NOTED AND HEMATOMA CONTINUES TO SOFT UPON PALPITATION.
--- NOTE | 2020-08-30 12:05 | NUR ---
HEMATOMA SIZE OF EGG UNDER 2ND INCISIOIN. DR ARZATE NOTIFIED. NO NEW ORDERS AT THIS TIME.
[2020-08-30 12:30] VITALS: BP 169/81; PULSE 65
--- NOTE | 2020-08-30 12:45 | NUR ---
RECEIVED DISCHARGE INSTRUCTIONS AND VERBALIZED UNDERSTANDING. DISCONTINUED IV AND INT- CATHETER INTACT.PATIENT CALLED [facility] FOR RIDE HOME. PATIENT GETTING DRESSED.
--- NOTE | 2020-08-30 13:15 | NUR ---
DISCHARGED PER WC BY NURSING STAFF TO PRIVATE CAR IN CARE OF COUSIN.
== END 2020-08-30 13:16 | disposition home or self-care (01) ==
LOC: SDCO 07:00
DX: Z49.02 Encounter for fitting and adjustment of peritoneal dialysis catheter (principal); I13.0 Hypertensive heart and chronic kidney disease with heart failure and stage 1 through stage 4 chronic kidney disease, or unspecified chronic kidney disease; I50.9 Heart failure, unspecified; N18.4 Chronic kidney disease, stage 4 (severe); E11.22 Type 2 diabetes mellitus with diabetic chronic kidney disease; J44.9 Chronic obstructive pulmonary disease, unspecified; K66.0 Peritoneal adhesions (postprocedural) (postinfection); Z87.891 Personal history of nicotine dependence; Z79.4 Long term (current) use of insulin; Z79.899 Other long term (current) drug therapy; Z20.822 Contact with and (suspected) exposure to COVID-19
CPT/HCPCS: C1750; C1751; J0690; J1100; J2405; J2704; J3010; J7030

== ENCOUNTER → 2020-09-19 | Outpatient (CLI) | payer SELFPAY ==
[~2020-09-19] MED LIST changes: +DOXYCYCLINE HY100 MG PO; +LASIX 80MG TABL80 MG PO; +NORVASC 5MG5 MG/TAB PO
== END ==
LOC: COL.RAD 10:32
DX: Z96.89 Presence of other specified functional implants (principal); N18.4 Chronic kidney disease, stage 4 (severe)
CPT/HCPCS: Q9967

== ENCOUNTER → 2020-09-24 | Outpatient (CLI) | payer SELFPAY ==
[2020-09-24 16:45] LABS: HEMATOCRIT 30.3 % (42.0-52.0); HEMOGLOBIN 9.8 g/dl (13.5-18.0)
[2020-09-24 16:48] LABS: CALCIUM 8.2 mg/dL (8.4-10.2); CREATININE, serum 5.59 (0.66-1.25); POTASSIUM 3.5 mmol/L (3.4-5.0)
[2020-09-24 23:09] LABS: HEPATITIS B SURFACE ANTIBODY 141.3 (()); HEPATITIS B SURFACE ANTIGEN Negative (Negative)
== END ==
LOC: COL.LAB 15:52 → COL.RAD 15:58 → COL.LAB 15:58
PROVIDERS: Internal Medicine Nephrology
DX: Z11.59 Encounter for screening for other viral diseases (principal); N18.6 End stage renal disease; Z99.2 Dependence on renal dialysis

== ENCOUNTER 2020-09-28 08:37 | Day surgery (SDC) | payer SELFPAY ==
[~2020-09-28] VITALS: Ht 157.5 cm; Wt 64.6 kg
[~2020-09-28 08:37] MED LIST changes: -DOXYCYCLINE HY100 MG PO; -LASIX 80MG TABL80 MG PO; -NORVASC 5MG5 MG/TAB PO
[2020-09-28 09:47] VITALS: BP 154/80; PULSE 72; TEMP 98.4
[2020-09-28 11:55] VITALS: BP 143/75; PULSE 72; TEMP 98.1
--- NOTE | 2020-09-28 11:55 | NUR ---
Pt returns to bay 4 from PACU. Alert and oriented x3, denies pain or nausea. Given crackers water. VSS. Call light in reach.
[2020-09-28 12:15] VITALS: BP 146/75; PULSE 71
[2020-09-28 12:30] VITALS: BP 146/80; PULSE 72
[2020-09-28 12:45] VITALS: BP 153/74; PULSE 77
--- NOTE | 2020-09-28 12:45 | NUR ---
Pt awake and alert, no pain or nausea, wanting to go home. Up to the bathroom, gait steady, voids without difficulty. Dressings clean and dry. Discharge instructions provided, IV d/c'd. Pt to take to private car via w/c and left in care of his cousin at 1320.
[2020-09-28] MEDS ORDERED: NORCO 325 MG-51 TAB PO (13:03)
== END 2020-09-28 13:20 | disposition home or self-care (01) ==
LOC: SDCO 08:37
DX: T85.611A Breakdown (mechanical) of intraperitoneal dialysis catheter, initial encounter (principal); E11.22 Type 2 diabetes mellitus with diabetic chronic kidney disease; N18.4 Chronic kidney disease, stage 4 (severe); I13.0 Hypertensive heart and chronic kidney disease with heart failure and stage 1 through stage 4 chronic kidney disease, or unspecified chronic kidney disease; I50.9 Heart failure, unspecified; I25.2 Old myocardial infarction; J44.9 Chronic obstructive pulmonary disease, unspecified; Z20.822 Contact with and (suspected) exposure to COVID-19; Z79.82 Long term (current) use of aspirin; Z79.899 Other long term (current) drug therapy; Z79.4 Long term (current) use of insulin; Z87.891 Personal history of nicotine dependence; I11.0 Hypertensive heart disease with heart failure
CPT/HCPCS: J0690; J1100; J2405; J2704; J3010; J7030

== ENCOUNTER 2020-10-22 12:55 | Inpatient (IN) | payer MEDICARE, MEDICAID ==
[~2020-10-22] VITALS: Ht 157.5 cm; Wt 61.3 kg
[2020-10-22 14:31] LABS: BASO % 0.2 % (0.0-2.0); EOS # 0.1 (0.0-0.7); EOS % 0.9 % (0-4.0); GRAN # 3.7 (1.4-6.5); GRAN % 65.3 % (42.2-75.2); HEMATOCRIT 35.5 % (42.0-52.0); HEMOGLOBIN 11.3 g/dl (13.5-18.0); LYMPH # 1.3 (1.2-3.4); LYMPH % 23.2 % (20.0-51.0); MEAN CELL VOLUME 94 fl (80.0-100.0); MEAN CORPUSCULAR HEMOGLOBIN 30 pg (27.0-31.0); MEAN CORPUSCULAR HGB CONC 32 g/dl (33.0-37.0); MEAN PLATELET VOLUME 9.7 fl (7.4-10.4); MONO # 0.6 (0.1-0.6); MONO % 10.2 % (1.7-9.3); PLATELET COUNT 293 K/mm3 (130-400); RED BLOOD COUNT 3.78 M/mm3 (4.20-5.60); REDCELL DISTRIBUTION WIDTH-CV 14.2 % (11.5-14.5)
[2020-10-22 14:40] LABS: ALANINE AMINOTRANSFERASE 31 U/L (4-49); ALBUMIN 3.4 gm/dL (3.5-5.0); ALKALINE PHOSPHATASE 242 U/L (50-136); ANION GAP 5 mmol/L (7-16); AST,SGOT 58 U/L (15-37); BILIRUBIN,TOTAL 0.5 mg/dL (0.0-1.0); BLOOD UREA NITROGEN 56 mg/dL (9-20); CALCIUM 8.1 mg/dL (8.4-10.2); CARBON DIOXIDE 27 mmol/L (22-30); CHLORIDE 102 mmol/L (98-107); CREATININE, serum 5.88 (0.66-1.25); GLUCOSE 123 mg/dL (74-106); LIPASE 418 U/L (23-300); POTASSIUM 3.5 mmol/L (3.4-5.0); SODIUM 134 mmol/L (137-145); TOTAL PROTEIN 7.2 gm/dL (6.4-8.2)
[2020-10-22 14:41] LABS: C-REACTIVE PROTEIN < 0.5 mg/dL (0.0-0.9)
[2020-10-22 21:09] VITALS: BP 159/76; PULSE 75; TEMP 100.1
--- NOTE | 2020-10-22 22:20 | NUR ---
Patient arrived medical floor room 301 around 18:30 pm. Patient alert and oriented. Patient reports lower back pain 7 or 8 out of 10. Patient currently on room air. Patient denies any SOB or dyspnea. No acute respiratory distress noted. Patient denies N/V or diarrhea at this time. Peritoneal dialysis catheter in place and site dressing C/D/I. Patient eating dinner at this time and tolerated food. Orientd patient to the room. PRN [place] given per JUN. All scheduled meds given per JUN. Will continue to monitor.
[2020-10-22 23:43] VITALS: BP 121/57; BP 157/76; PULSE 71; PULSE 72; TEMP 98.8; TEMP 99.5
[2020-10-23] VITALS (8 sets, daily range): BP systolic 113–182; BP diastolic 67–90; PULSE 69–78; TEMP 98.3–101.8
[2020-10-23 06:43] LABS: BASO % 0.2 % (0.0-2.0); EOS # 0.1 (0.0-0.7); EOS % 1.5 % (0-4.0); GRAN % 63.4 % (42.2-75.2); LYMPH # 1.3 (1.2-3.4); LYMPH % 26.6 % (20.0-51.0); MEAN CELL VOLUME 94 fl (80.0-100.0); MEAN CORPUSCULAR HEMOGLOBIN 30 pg (27.0-31.0); MEAN CORPUSCULAR HGB CONC 32 g/dl (33.0-37.0); MEAN PLATELET VOLUME 10.1 fl (7.4-10.4); MONO # 0.4 (0.1-0.6); MONO % 7.9 % (1.7-9.3); PLATELET COUNT 255 K/mm3 (130-400); RED BLOOD COUNT 3.68 M/mm3 (4.20-5.60); REDCELL DISTRIBUTION WIDTH-CV 14.4 % (11.5-14.5)
[2020-10-23 06:46] LABS: HEMATOCRIT 34.5 % (42.0-52.0)
[2020-10-23 06:48] LABS: CALCIUM 7.6 mg/dL (8.4-10.2); CREATININE, serum 5.39 (0.66-1.25); PHOSPHOROUS 5.5 mg/dL (2.5-4.5)
--- NOTE | 2020-10-23 08:00 | NUR ---
Patient is resting in bed, alert and oriented x 4, high blood pressure, oxygen 95. Reports some shortness of breath when he stands and walk. SCDs implemented. His peritoneal dialisis catheter was clean and dry. With gauze as dressing. No further needs at this time. Phone is within reach. Call light do not work. Was reported to Mary, in process to get a new one.
--- NOTE | 2020-10-23 11:07 | NUR ---
Patient is resting in bed watching TV, reports no pain, nausea or vomiting. Minimal shortness of breath, 95 o2. No further needs at the moment. Phone within reach since call light is not working yet.
--- NOTE | 2020-10-23 11:16 | NUR ---
The patient is COVID positive. SW contacted the patient's room phone to discus discharge plan. The patient lives in [place] with his girlfriend, Jessica. He reports independence with ADLs and has a cane. The patient states that he receives primary care at [facility] and he receives his medications from [facility]. He reports difficulties affording his meds. He states that he was apart of their patient based program to assist him with his meds, but that he has not been there in awhile. SW informed her of [facility] in [place] and how they can also assist with prescription assistance. The patient verbalized understanding. The patient reports that he is not working right now. The patient confirms that he is self pay. The patient reports that he has applied for Medicaid and is just waiting to hear back from them. SHIKHA consulted Zakiya, financial counselor, in [place]. Zakiya reports that she does not have access to to check the status of Medicaid, but that she will notify her glass cut off supervisor. The patient does not have a DPOA-HC completed. He reports that he was in the process of designating his daughter, Hamida Li, but he did not get the form notarized. The patient states that he is not and that he has two children over the age of 18: Hamida and Conner. They both live in [place] and he could not recall their phone numbers and did not have the numbers with him. The patient states that he has listed his sister, Noreen (#[phone]), as his emergency contact. SW informed him how his two daughters are his next of kin. The patient verbalized understanding. The patient plans to return home with his girlfriend upon discharge. SW to continue to follow as needed. *Discharge plan: home with girlfriend*
--- NOTE | 2020-10-23 19:06 | NUR ---
Patient is resting in bed, he has more constant cough. Complains of pain in his left lower lung. Tylenol was offered conforming prescription. SCD were refused. New call light was instaled but still not working. Asked him to call using the phone. High blood pressure with the last reading, reported to the night nurse for hydrolizine administration.
--- NOTE | 2020-10-23 23:17 | NUR ---
Pt has been ok . Bp was elevated. Pt spike a temp. Hydralazine and tylenol was given and rechecked later. Will continue to monitor.
[2020-10-24 02:26] VITALS: BP 148/71; PULSE 71; TEMP 100.4
[2020-10-24 03:00] VITALS: TEMP 99.5
--- NOTE | 2020-10-24 03:39 | NUR ---
Pt spike a temp again. Tylenol was given and rechecked temp twice. last one was 99.5. Will continue to monitor.
--- NOTE | 2020-10-24 05:56 | NUR ---
Pt blood sugar is 60 . Miner juice was given. Will recheck blood sugar after 30 mntes.
[2020-10-24 07:16] LABS: EOS % 0.6 % (0-4.0); GRAN # 3.1 (1.4-6.5); GRAN % 64.1 % (42.2-75.2); HEMOGLOBIN 12.1 g/dl (13.5-18.0); LYMPH # 1.3 (1.2-3.4); LYMPH % 27.8 % (20.0-51.0); MEAN CELL VOLUME 92 fl (80.0-100.0); MEAN CORPUSCULAR HEMOGLOBIN 29 pg (27.0-31.0); MEAN CORPUSCULAR HGB CONC 32 g/dl (33.0-37.0); MEAN PLATELET VOLUME 10.1 fl (7.4-10.4); MONO # 0.3 (0.1-0.6); MONO % 7.1 % (1.7-9.3); PLATELET COUNT 256 K/mm3 (130-400); RED BLOOD COUNT 4.12 M/mm3 (4.20-5.60); REDCELL DISTRIBUTION WIDTH-CV 14.3 % (11.5-14.5)
--- NOTE | 2020-10-24 07:20 | NUR ---
Following report with RUPALI Barajas, this nurse enters room briefly, pt resting in bed with eyes closed, resp even and unlabored. Call light in reach.
[2020-10-24 07:29] LABS: ALBUMIN 3.3 gm/dL (3.5-5.0); CALCIUM 7.7 mg/dL (8.4-10.2); CREATININE, serum 5.26 (0.66-1.25); PHOSPHOROUS 5.3 mg/dL (2.5-4.5)
[2020-10-24 07:44] LABS: POTASSIUM 3.1 mmol/L (3.4-5.0)
[2020-10-24 07:50] VITALS: BP 146/74; PULSE 67; TEMP 99.7
--- NOTE | 2020-10-24 09:05 | NUR ---
Assessment complete. Pt resting in bed on right side, A&O x 4, reports continued pain to lower/middle back 10 out of 10, requesting pain medication. Left lung with inspiratory and expiratory wheeze. Dialysis port to abd with dressing CDI. Saline lock IV to right AC without s/s of complications. Pt denies further needs. Call light in reach.
--- NOTE | 2020-10-24 09:20 | NUR ---
PRN pain medication administered for pt's back pain per request and orders. No further needs reported. Call light in reach.
[2020-10-24 12:52] VITALS: BP 142/80; PULSE 70; TEMP 99.1
--- NOTE | 2020-10-24 14:30 | NUR ---
Pt reports back pain increasing again and radiating to left side, asks "can you check my left lung." Breath sounds continue to be wheezy in left lung. PRN pain medication administered and provider notified.
[2020-10-24 17:00] VITALS: BP 155/87; PULSE 64; TEMP 99.1
[2020-10-24 19:25] VITALS: BP 157/77; PULSE 61; TEMP 99.1
--- NOTE | 2020-10-24 23:03 | NUR ---
Pt was feeling nauseous at the begining of the shift and refused to eat diner.Zofran was given. Pt is currently resting.Will continue to monitor.
[2020-10-25] VITALS (7 sets, daily range): BP systolic 135–160; BP diastolic 72–81; PULSE 66–74; TEMP 98.8–100.6
[2020-10-25 07:55] LABS: EOS # 0.1 (0.0-0.7); EOS % 2.2 % (0-4.0); GRAN # 2.3 (1.4-6.5); GRAN % 56.7 % (42.2-75.2); HEMOGLOBIN 10.3 g/dl (13.5-18.0); LYMPH # 1.3 (1.2-3.4); LYMPH % 32.7 % (20.0-51.0); MEAN CELL VOLUME 93 fl (80.0-100.0); MEAN CORPUSCULAR HEMOGLOBIN 30 pg (27.0-31.0); MEAN CORPUSCULAR HGB CONC 32 g/dl (33.0-37.0); MEAN PLATELET VOLUME 9.8 fl (7.4-10.4); MONO # 0.3 (0.1-0.6); MONO % 7.9 % (1.7-9.3); PLATELET COUNT 231 K/mm3 (130-400); RED BLOOD COUNT 3.49 M/mm3 (4.20-5.60); REDCELL DISTRIBUTION WIDTH-CV 14.5 % (11.5-14.5)
[2020-10-25 07:57] LABS: HEMATOCRIT 32.6 % (42.0-52.0)
[2020-10-25 08:07] LABS: ALBUMIN 2.9 gm/dL (3.5-5.0); CALCIUM 7.5 mg/dL (8.4-10.2); CREATININE, serum 4.92 (0.66-1.25); PHOSPHOROUS 5.8 mg/dL (2.5-4.5); POTASSIUM 3.2 mmol/L (3.4-5.0)
--- NOTE | 2020-10-25 19:01 | NUR ---
Pt had uneventful day, reported intermittent back pain, PRN pain medication and K pad provided. Remains on RA, no SOB. Decrease in appetite. Denies needs at this time. Call light within reach.
--- NOTE | 2020-10-25 22:36 | NUR ---
Pt has been good. Pain rated 2/10.Pt refused to eat diner due to no appetite.Will encourage to eat.
[2020-10-26 03:03] VITALS: BP 159/86; PULSE 68; TEMP 099.2
[2020-10-26 06:39] LABS: BASO % 0.2 % (0.0-2.0); EOS # 0.1 (0.0-0.7); EOS % 3.1 % (0-4.0); GRAN # 2.7 (1.4-6.5); GRAN % 59.9 % (42.2-75.2); HEMOGLOBIN 10.8 g/dl (13.5-18.0); LYMPH # 1.2 (1.2-3.4); LYMPH % 27.7 % (20.0-51.0); MEAN CELL VOLUME 93 fl (80.0-100.0); MEAN CORPUSCULAR HEMOGLOBIN 30 pg (27.0-31.0); MEAN CORPUSCULAR HGB CONC 32 g/dl (33.0-37.0); MEAN PLATELET VOLUME 9.5 fl (7.4-10.4); MONO # 0.4 (0.1-0.6); MONO % 8.7 % (1.7-9.3); PLATELET COUNT 250 K/mm3 (130-400); RED BLOOD COUNT 3.65 M/mm3 (4.20-5.60); REDCELL DISTRIBUTION WIDTH-CV 14.4 % (11.5-14.5)
[2020-10-26 06:52] LABS: ALBUMIN 3.2 gm/dL (3.5-5.0); CALCIUM 7.8 mg/dL (8.4-10.2); CREATININE, serum 4.99 (0.66-1.25); PHOSPHOROUS 5.7 mg/dL (2.5-4.5); POTASSIUM 3.2 mmol/L (3.4-5.0)
[2020-10-26 08:09] VITALS: BP 157/78; PULSE 74; TEMP 99
--- NOTE | 2020-10-26 08:32 | NUR ---
Patient laying in bed upon entering the room. Asked the patient if he was experiencing any pain, and stated it was an 8/10 in his back. Patient is currently laying on a heating pad and is curled up in the position on his left side. This RN will be giving the patient some PRN pain medication.
[2020-10-26] MEDS ORDERED: NORVASC 5MG5 MG/TAB PO (10:48)
[2020-10-26] MEDS ORDERED: LASIX 80MG TABL80 MG PO (10:49)
[2020-10-26] MEDS ORDERED: DOXYCYCLINE HY100 MG PO (10:50)
[2020-10-26 12:10] VITALS: BP 136/76; PULSE 61; TEMP 98.2
[2020-10-26 17:56] VITALS: BP 155/74; PULSE 67
--- NOTE | 2020-10-26 18:12 | NUR ---
Patient did well today. BS did drop to 68, apple juice was given and patient also ate lunch. BS came back up to 108. BS before DC was 80.
== END 2020-10-26 18:14 | disposition home or self-care (01) | DRG 177 ==
LOC: COL.ER 12:55 → MEDICAL 16:21
PROVIDERS: Emergency Medicine; ADMIT Internal Medicine Nephrology
DX: U07.1 COVID-19 (principal); N18.6 End stage renal disease; J12.82 Pneumonia due to coronavirus disease 2019; I13.2 Hypertensive heart and chronic kidney disease with heart failure and with stage 5 chronic kidney disease, or end stage renal disease; E11.22 Type 2 diabetes mellitus with diabetic chronic kidney disease; E87.6 Hypokalemia; I50.9 Heart failure, unspecified; R53.81 Other malaise; Z79.82 Long term (current) use of aspirin; Z79.4 Long term (current) use of insulin
CPT/HCPCS: J0696; J1815; J2405; J2550; J7030

== ENCOUNTER 2020-12-04 11:43 | Day surgery (SDC) | payer MEDICAID ==
[~2020-12-04] VITALS: Ht 157.5 cm; Wt 61.0 kg
[~2020-12-04 11:43] MED LIST changes: +DOXYCYCLINE HY100 MG PO; +LASIX 80MG TABL80 MG PO; +NORVASC 5MG5 MG/TAB PO
[2020-12-04 12:59] LABS: CALCIUM 6.5 mg/dL (8.4-10.2); CREATININE, serum 6.37 (0.66-1.25)
[2020-12-04 13:01] VITALS: BP 114/66; PULSE 63; TEMP 97.8
[2020-12-04 13:05] LABS: POTASSIUM 2.8 mmol/L (3.4-5.0)
[2020-12-04 14:02] VITALS: BP 105/63; PULSE 61; TEMP 97.8
--- NOTE | 2020-12-04 14:02 | NUR ---
PATIENT TRANSPORTED PER CART FROM OR TO BAY 4 ACCOMPANIED BY OR STAFF. MONITORS APPLIED. VSS ON ROOM AIR. PATIENT TALKING WITH STAFF. DRESSING TO ABD CDI. PATIENT DENIES DISCOMFORT. VERBAL REPORT RECIEVED.
[2020-12-04 14:15] VITALS: BP 120/57; PULSE 59
--- NOTE | 2020-12-04 14:15 | NUR ---
VSS ON ROOM AIR. PATIENT ALERT AND WATCHING TV. DENIES DISCOMFORT AND NAUSEA. PATIENT GIVEN TOAST AND CRANBERRY JUICE. DENIES PROBLEMS WITH FOOD AND DRINK. PATIENT'S SISTER CALLED AND UPDATED TO COME.
[2020-12-04 14:30] VITALS: BP 141/75; PULSE 65
--- NOTE | 2020-12-04 14:30 | NUR ---
VSS ON ROOM AIR. PATIENT TOLERATES FOOD AND DRINK WITHOUT PROBLEMS. WATCHING TV.
[2020-12-04 14:45] VITALS: BP 125/71; PULSE 57
--- NOTE | 2020-12-04 15:17 | NUR ---
VSS ON ROOM AIR. PATIENT WATCHING TV. TOLERATES FOOD AND DRINK WITHOUT PROBLEMS. 1446 IV DC'D WITH CATHETER TIP INTACT. PRESSURE AND BANDAGE APPLIED. 1447 DISCHARGE INSTRUCTIONS GIVEN VERBAL AND DISCHARGE PACKET GIVEN TO PATIENT. QUESTIONS ANSWERED AND PATIENT VOICED UNDERSTANDING. PATIENT CHANGES INTO STREET CLOTHES. 1510 PATIENT DISCHARGED PER WHEEL CHAIR ACCOMPANIED BY AMB STAFF TO PRIVATE VECHILE DRIVEN BY SISTER.
== END 2020-12-04 15:10 | disposition home or self-care (01) ==
LOC: SDCO 11:43
PROVIDERS: Nurse Anesthetist, Certified Registered
DX: T85.611A Breakdown (mechanical) of intraperitoneal dialysis catheter, initial encounter (principal); I13.0 Hypertensive heart and chronic kidney disease with heart failure and stage 1 through stage 4 chronic kidney disease, or unspecified chronic kidney disease; I50.9 Heart failure, unspecified; I25.2 Old myocardial infarction; N18.4 Chronic kidney disease, stage 4 (severe); J44.9 Chronic obstructive pulmonary disease, unspecified; E11.22 Type 2 diabetes mellitus with diabetic chronic kidney disease; Z79.4 Long term (current) use of insulin; Z79.899 Other long term (current) drug therapy; J45.909 Unspecified asthma, uncomplicated; Z87.891 Personal history of nicotine dependence; Z79.82 Long term (current) use of aspirin
CPT/HCPCS: J0690; J2405; J2704; J3010; J7030

== ENCOUNTER 2021-05-16 10:51 | Emergency (ER) | payer MEDICARE, MEDICAID ==
[~2021-05-16] VITALS: Ht 157.5 cm; Wt 59.1 kg
[2021-05-16 10:57] VITALS: TEMP 98.1
[2021-05-16 11:20] LABS: BASO % 0.1 % (0.0-2.0); EOS # 0.3 K/mm3 (0.0-0.7); EOS % 2.9 % (0.0-4.0); GRAN # 6.4 K/mm3 (1.4-6.5); GRAN % 73.7 % (42.2-75.2); HEMOGLOBIN 10.8 g/dl (13.5-18.0); LYMPH # 1.3 K/mm3 (1.2-3.4); LYMPH % 15.1 % (20.0-51.0); MEAN CELL VOLUME 93 fl (80.0-100.0); MEAN CORPUSCULAR HEMOGLOBIN 29 pg (27-31); MEAN CORPUSCULAR HGB CONC 31 g/dl (33.0-37.0); MEAN PLATELET VOLUME 9.8 fl (7.4-10.4); MONO # 0.7 K/mm3 (0.1-0.6); MONO % 7.7 % (1.7-9.3); PLATELET COUNT 261 K/mm3 (130-400); RED BLOOD COUNT 3.74 M/mm3 (4.20-5.60); REDCELL DISTRIBUTION WIDTH-CV 15.4 % (11.5-14.5)
[2021-05-16 11:21] LABS: HEMATOCRIT 34.7 % (42.0-52.0)
[2021-05-16 11:36] LABS: ALBUMIN 2.7 gm/dL (3.5-5.0); BILIRUBIN,TOTAL 0.6 mg/dL (0.2-1.2); CALCIUM 7.4 mg/dL (8.4-10.2); CREATININE, serum 9.49 mg/dL (0.72-1.25); POTASSIUM 5.4 mmol/L (3.5-4.5); TOTAL PROTEIN 7.2 gm/dL (6.2-8.1)
[2021-05-16 11:41] LABS: TROPONIN-I 0.028 ng/mL (0.00-0.033)
[2021-05-16 12:54] LABS: COLLECTION METHOD CLEAN CATCH
[2021-05-16 13:03] LABS: MUCOUS Present (NOT PRESENT); PH 5 (5-8); SQUAMOUS EPITHELIAL 0-2 /hpf (0-10); URINE APPEARANCE Clear (CLEAR/HAZY); URINE BACTERIA None Seen /hpf (NONE SEEN); URINE BILIRUBIN Negative (NEGATIVE); URINE BLOOD Negative (NEGATIVE); URINE COLOR Yellow (YELLOW); URINE GLUCOSE Negative (NEGATIVE); URINE KETONE Negative (NEGATIVE); URINE LEUKOCYTE ESTERASE Negative (NEGATIVE); URINE NITRATE Negative (NEGATIVE); URINE PROTEIN(semi-quant) 2+ (NEGATIVE); URINE RBC 0-2 /hpf (0-2); URINE UROBILINOGEN Negative (NEGATIVE)
[2021-05-16 13:20] VITALS: BP 141/87; PULSE 73
[2021-05-21] MEDS ORDERED: CALCIUM PO (06:30)
== END 2021-05-16 13:20 | disposition home or self-care (01) ==
LOC: COL.ER 10:51
PROVIDERS: Emergency Medicine
DX: K65.9 Peritonitis, unspecified (principal); I21.4 Non-ST elevation (NSTEMI) myocardial infarction; J44.9 Chronic obstructive pulmonary disease, unspecified; E11.22 Type 2 diabetes mellitus with diabetic chronic kidney disease; I13.2 Hypertensive heart and chronic kidney disease with heart failure and with stage 5 chronic kidney disease, or end stage renal disease; N18.6 End stage renal disease; Z99.2 Dependence on renal dialysis; Z87.891 Personal history of nicotine dependence; Z79.4 Long term (current) use of insulin; Z79.82 Long term (current) use of aspirin; Z79.899 Other long term (current) drug therapy
CPT/HCPCS: J2270; J2405

== ENCOUNTER 2021-06-13 05:55 | Day surgery (SDC) | payer MEDICARE, MEDICAID ==
[~2021-06-13] VITALS: Ht 157.5 cm; Wt 60.6 kg
[~2021-06-13 05:55] MED LIST changes: +OSCAL 500 TAB500 MG PO
[2021-06-13 06:47] VITALS: BP 186/92; PULSE 73; TEMP 97.8
[2021-06-13 07:00] LABS: CALCIUM 8.4 mg/dL (8.4-10.2); CREATININE, serum 5.59 mg/dL (0.72-1.25); POTASSIUM 3.4 mmol/L (3.5-4.5)
[2021-06-13] MEDS ORDERED: NORCO 325 MG-51 TAB PO (09:55)
[2021-06-13 10:00] VITALS: BP 145/95; PULSE 66; TEMP 97.6
--- NOTE | 2021-06-13 10:00 | NUR ---
PT FROM OR TO [facility]. RECEIVED REPORT FROM SPECIAL NEEDS TEACHER AND RECYCLING MANAGER. VS OBTAINED. ASSESSMENT COMPLETED. PT DENIES ANY DISCOMFORT AT THIST TIME. WILL CONTINUE TO MONITOR. REORIENTED PT TO ROOM AND CALL LIGHT. PT REQUESTIND SOMETHING TO DRINK.
[2021-06-13 10:15] VITALS: BP 154/91; PULSE 62
--- NOTE | 2021-06-13 10:15 | NUR ---
PT TOLERATING APPLE JUICE WITHOUT DIFFICULTY. PT CONTINUES TO REST COMFORTABLY. WILL CONTINUE TO MONITOR.
[2021-06-13 10:30] VITALS: BP 170/91; PULSE 71
--- NOTE | 2021-06-13 10:30 | NUR ---
PT TOLERATING APPLE JUICE AND MUFFIN WITHOUT DIFFICULTY. PT DENIES ANY NEEDS AT THIS TIME. WILL CONTINUE TO MONITOR.
[2021-06-13 10:45] VITALS: BP 182/87; PULSE 68
--- NOTE | 2021-06-13 10:45 | NUR ---
PT STATES HE IS READY FOR DISCHARGE. PT STATES HE WILL TAKE HIS BLOOD PRESSURE MEDICATION SOON HE GETS HOME. STATES THAT HIS BLOOD PRESSURE WILL INCREASE WHEN HE DOESN'T TAKE HIS MEDICATION.
--- NOTE | 2021-06-13 10:50 | NUR ---
DV IV. PT TOLERATED WELL.
--- NOTE | 2021-06-13 10:55 | NUR ---
DISCHARGE EDUCATION COMPLETED WITH PT. VERBALIZED UNDERSTANDING OF HOME AND FOLLOW UP CARE. ALL QUESTIONS ANSWERED. DISCHARGE PAPERWORK GIVEN TO PT.
--- NOTE | 2021-06-13 11:05 | NUR ---
PT OFF UNIT PER WHEELCHAIR. DISCHARE TO HOME WITH GIRLFRIEND PER PERSONAL VEHICLE.
== END 2021-06-13 11:05 | disposition home or self-care (01) ==
LOC: SDCO 05:55
PROVIDERS: Nurse Anesthetist, Certified Registered
DX: T85.611A Breakdown (mechanical) of intraperitoneal dialysis catheter, initial encounter (principal); I13.2 Hypertensive heart and chronic kidney disease with heart failure and with stage 5 chronic kidney disease, or end stage renal disease; E11.22 Type 2 diabetes mellitus with diabetic chronic kidney disease; N18.6 End stage renal disease; I50.9 Heart failure, unspecified; J45.998 Other asthma; I25.2 Old myocardial infarction; Z99.2 Dependence on renal dialysis; Z79.4 Long term (current) use of insulin; Z86.16 Personal history of COVID-19
CPT/HCPCS: C1768; J0690; J1644; J2001; J2250; J2704; J3010

== ENCOUNTER 2021-09-13 10:07 | Emergency (ER) | payer MEDICARE, MEDICAID ==
[~2021-09-13] VITALS: Ht 157.5 cm; Wt 54.5 kg
[2021-09-13 11:04] LABS: BASO % 0.4 % (0.0-2.0); EOS # 0.7 K/mm3 (0.0-0.7); EOS % 9.6 % (0.0-4.0); GRAN # 4.8 K/mm3 (1.4-6.5); GRAN % 69.6 % (42.2-75.2); HEMATOCRIT 38.4 % (42.0-52.0); HEMOGLOBIN 12.5 g/dl (13.5-18.0); LYMPH # 0.8 K/mm3 (1.2-3.4); LYMPH % 12.1 % (20.0-51.0); MEAN CELL VOLUME 91 fl (80.0-100.0); MEAN CORPUSCULAR HEMOGLOBIN 30 pg (27-31); MEAN CORPUSCULAR HGB CONC 33 g/dl (33.0-37.0); MEAN PLATELET VOLUME 9.1 fl (7.4-10.4); MONO # 0.6 K/mm3 (0.1-0.6); MONO % 8.2 % (1.7-9.3); PLATELET COUNT 237 K/mm3 (130-400); REDCELL DISTRIBUTION WIDTH-CV 13.1 % (11.5-14.5)
[2021-09-13 11:29] LABS: ALBUMIN 3.5 gm/dL (3.5-5.0); BILIRUBIN,TOTAL 0.5 mg/dL (0.2-1.2); CALCIUM 9.1 mg/dL (8.4-10.2); CREATININE, serum 9.66 mg/dL (0.72-1.25); TOTAL PROTEIN 7.8 gm/dL (6.2-8.1)
[2021-09-13 12:07] LABS: TROPONIN-I 0.068 ng/mL (0.00-0.033)
[2021-09-13] MEDS ORDERED: LIPITOR 40MG TA40 MG PO (14:47)
[2021-09-13 14:50] VITALS: BP 171/95; PULSE 78; TEMP 97.2
== END 2021-09-13 14:50 | disposition home or self-care (01) ==
LOC: COL.ER 10:07
PROVIDERS: Emergency Medicine
DX: E11.22 Type 2 diabetes mellitus with diabetic chronic kidney disease (principal); N18.6 End stage renal disease; R09.89 Other specified symptoms and signs involving the circulatory and respiratory systems; R05.9 Cough, unspecified; R06.2 Wheezing; R77.8 Other specified abnormalities of plasma proteins; R79.89 Other specified abnormal findings of blood chemistry; Z99.2 Dependence on renal dialysis; Z87.891 Personal history of nicotine dependence; Z28.310 Unvaccinated for COVID-19

== ENCOUNTER 2021-10-10 09:19 | Day surgery (SDC) | payer MEDICARE, MEDICAID ==
[2021-10-10] VITALS (7 sets, daily range): BP systolic 124–166; BP diastolic 80–93; PULSE 84–86; TEMP 97.4–98.1
[~2021-10-10] VITALS: Ht 157.5 cm; Wt 53.2 kg
[~2021-10-10 09:19] MED LIST changes: +LIPITOR 40MG TA40 MG PO
[2021-10-10 10:34] LABS: CALCIUM 8.9 mg/dL (8.4-10.2); CREATININE, serum 7.24 mg/dL (0.72-1.25)
--- NOTE | 2021-10-10 13:16 | NUR ---
AWAKE, ALERT. RESP CLEAR, SPONTANEOUS. DENIES PAIN. DENIES NAUSEA. SMALL INCISION SITE TO LEFT ARM WITHOUT REDNESS OR DRAINAGE. NO DRESSING PRESENT. THRILL EASILY PALPATED
--- NOTE | 2021-10-10 13:31 | NUR ---
TOLERATES PO JUICE AND CRACKERS WITHOUT NAUSEA.
--- NOTE | 2021-10-10 14:30 | NUR ---
DISCHARGE INSTRUCTIONS REVIEWED. PATIENT VERBALIZES UNDERSTANDING. COPY OF INSTRUCTIONS AND EDUCATIONAL MATERIAL PROVIDED TO PATIENT. PATIENT SITS ON EDGE OF BED, DRESSES SELF.
== END 2021-10-10 14:40 | disposition home or self-care (01) ==
LOC: SDCO 09:19
PROVIDERS: Surgery
DX: T82.898A Other specified complication of vascular prosthetic devices, implants and grafts, initial encounter (principal); E11.22 Type 2 diabetes mellitus with diabetic chronic kidney disease; I13.2 Hypertensive heart and chronic kidney disease with heart failure and with stage 5 chronic kidney disease, or end stage renal disease; I50.9 Heart failure, unspecified; N18.6 End stage renal disease; I25.2 Old myocardial infarction; Z79.4 Long term (current) use of insulin; Z79.84 Long term (current) use of oral hypoglycemic drugs; Z28.310 Unvaccinated for COVID-19; Z28.9 Immunization not carried out for unspecified reason; Z79.82 Long term (current) use of aspirin
CPT/HCPCS: J0690; J2704; J3010; J7030

== ENCOUNTER 2021-12-05 08:41 | Outpatient (CLI) | payer MEDICARE, MEDICAID ==
[~2021-12-05] VITALS: Ht 157.5 cm; Wt 54.6 kg
[2021-12-05] VITALS (9 sets, daily range): BP systolic 170–195; BP diastolic 91–105; PULSE 73–80; TEMP 98.8
[2021-12-05] MEDS ORDERED: LASIX 80MG TABL80 MG PO (09:52)
[2021-12-05] MEDS ORDERED: NORVASC 5MG5 MG/TAB PO (09:53)
--- NOTE | 2021-12-05 10:51 | NUR ---
See merge for all medication, assessment, intervention, and vital sign times.
--- NOTE | 2021-12-05 12:03 | NUR ---
Pt returned from procedure.Report from Rogelio Grimes.
== END 2021-12-05 15:08 ==
LOC: COL.CAR 08:41
DX: T82.858A Stenosis of other vascular prosthetic devices, implants and grafts, initial encounter (principal); N18.6 End stage renal disease
CPT/HCPCS: C1725; C1769; J1644; J2250; J3010; Q9967

== ENCOUNTER → 2021-12-20 | Outpatient (CLI) | payer MEDICARE, MEDICAID | LOC: COL.VAS 08:46 | DX: I70.213 Atherosclerosis of native arteries of extremities with intermittent claudication, bilateral legs (principal) ==

== ENCOUNTER 2023-05-06 16:21 | Emergency (ER) | payer MEDICARE, MEDICAID ==
[~2023-05-06] VITALS: Ht 157.5 cm; Wt 50.5 kg
[~2023-05-06 16:21] MED LIST changes: +MIRALAX238G PO; +PHOSPHATE BINDER PO; +PREDNISONE50 MG PO; +VALTREX 50500 MG/TAB PO
[2023-05-06 16:29] VITALS: BP 158/112; TEMP 96.8
[2023-05-06 17:35] VITALS: PULSE 90
== END 2023-05-06 17:35 | disposition home or self-care (01) ==
LOC: COL.ER 16:21
DX: S86.011A Strain of right Achilles tendon, initial encounter (principal); E11.22 Type 2 diabetes mellitus with diabetic chronic kidney disease; I13.2 Hypertensive heart and chronic kidney disease with heart failure and with stage 5 chronic kidney disease, or end stage renal disease; I50.9 Heart failure, unspecified; N18.6 End stage renal disease; Z99.2 Dependence on renal dialysis; Z87.891 Personal history of nicotine dependence; Z89.431 Acquired absence of right foot; W00.0XXA Fall on same level due to ice and snow, initial encounter

== ENCOUNTER 2023-10-18 05:08 | Emergency (ER) | payer MEDICARE, MEDICAID ==
[~2023-10-18 05:08] MED LIST changes: +RENVELA800 MG PO; +ROXICODONE 55 MG/TAB PO
[2023-10-18] MEDS ORDERED: Morphine 4 MG/ML VIAL IV ONE ×2 (05:30→06:00)
[2023-10-18 05:36] LABS: BASO % 0.4 % (0.0-2.0); EOS # 0.6 K/mm3 (0.0-0.7); EOS % 6.1 % (0.0-4.0); GRAN % 62.5 % (42.2-75.2); LYMPH # 2.3 K/mm3 (1.2-3.4); LYMPH % 23.5 % (20.0-51.0); MEAN CELL VOLUME 87 fl (80.0-100.0); MEAN CORPUSCULAR HGB CONC 31 g/dl (33.0-37.0); MEAN PLATELET VOLUME 9.3 fl (7.4-10.4); MONO # 0.7 K/mm3 (0.1-0.6); MONO % 7.1 % (1.7-9.3); PLATELET COUNT 320 K/mm3 (130-400); REDCELL DISTRIBUTION WIDTH-CV 15.5 % (11.5-14.5)
[2023-10-18 05:37] LABS: INR 1.2 (0.8-3.0); PROTHROMBIN TIME 12.5 SECONDS (9.7-12.8)
[2023-10-18 05:42] LABS: ERYTHROCYTE SEDIMENTATION RATE 34 mm/hr (0-30); HEMATOCRIT 29.6 % (42.0-52.0); HEMOGLOBIN 9.3 g/dl (13.5-18.0); MEAN CORPUSCULAR HEMOGLOBIN 27 pg (27-31)
[2023-10-18 05:50] LABS: ALANINE AMINOTRANSFERASE 9 U/L (0-55); ALKALINE PHOSPHATASE 96 U/L (40-150); ANION GAP 20 mmol/L (7-16); AST,SGOT 23 U/L (5-34); BILIRUBIN,TOTAL 0.5 mg/dL (0.2-1.2); BLOOD UREA NITROGEN 50 mg/dL (8-26); C-REACTIVE PROTEIN 0.73 mg/dL (0.00-0.50); CALCIUM 7.4 mg/dL (8.4-10.2); CHLORIDE 94 mEq/L (98-107); CREATININE, serum 10.43 mg/dL (0.72-1.25); GLUCOSE 111 mg/dL (70-99); PHOSPHOROUS 6.2 mg/dL (2.3-4.7); POTASSIUM 3.4 mEq/L (3.5-4.5); SODIUM 136 mEq/L (136-145); TOTAL PROTEIN 7.5 g/dl (6.2-8.1)
[2023-10-18 05:51] LABS: ALCOHOL(ethanol),MEDICAL < 10 mg/dL (0-10)
[2023-10-18] MEDS ORDERED: Home HYDROcodone/Acetaminophen 5/325 MG #4 TABS/PACK PO ONE (07:15)
[2023-10-18 07:37] VITALS: BP 190/111; PULSE 81; TEMP 98.2
== END 2023-10-18 07:39 | disposition home or self-care (01) ==
LOC: COL.ER 05:08
PROVIDERS: Emergency Medicine
DX: E11.22 Type 2 diabetes mellitus with diabetic chronic kidney disease (principal); I13.2 Hypertensive heart and chronic kidney disease with heart failure and with stage 5 chronic kidney disease, or end stage renal disease; I50.9 Heart failure, unspecified; N18.6 End stage renal disease; D63.1 Anemia in chronic kidney disease; E83.59 Other disorders of calcium metabolism; N48.29 Other inflammatory disorders of penis; E83.39 Other disorders of phosphorus metabolism; Z99.2 Dependence on renal dialysis
CPT/HCPCS: J2270